=== PATIENT | male | born 1985 | race Caucasian/White ===

== ENCOUNTER 2017-08-23 17:18 | Emergency (ER) | payer OTHER ==
[2017-08-23 17:40] VITALS: TEMP 98
[2017-08-23] MEDS ORDERED: ONDANSETRON 4 MG ODT BU ONE (17:52)
[2017-08-23] MEDS ORDERED: ONDANSETRON 4 MG ODT ONE (17:56)
[2017-08-23 18:38] VITALS: BP 121/74; PULSE 86; RESP 18; O2SAT 99
== END 2017-08-23 18:33 | disposition home or self-care (01) | DRG 918 ==
LOC: ED 17:18
DX: T59.891A Toxic effect of other specified gases, fumes and vapors, accidental (unintentional), initial encounter (principal); R11.0 Nausea
CPT/HCPCS: 99282; 99283

== ENCOUNTER 2017-10-29 15:41 | Emergency (ER) | payer OTHER ==
[2017-10-29 15:41] VITALS: O2SAT 99
[2017-10-29 15:49] VITALS: BP 129/72; PULSE 99; RESP 20; TEMP 97.5
[2017-10-29] MEDS ORDERED: THIAMINE 100 MG/ML 100 MG/ML SOL IV ONE (16:17)
[2017-10-29] MEDS ORDERED: THIAMINE 100 MG/ML 100 MG/ML SOL ONE (16:26)
[2017-10-29] MEDS ORDERED: SODIUM CHLORIDE 0.9% 1000ML 1,000 ML IV SCH (16:30)
[2017-10-29 16:34] LABS: BASOPHILS % (AUTO) 2 % (0-3); EOSINOPHILS % (AUTO) 1 % (0-9); HEMATOCRIT 48 % (39-53); MEAN CORPUSCULAR HGB CONC 33.4 gm/dl (32.0-36.0); MEAN CORPUSCULAR VOLUME 89 fL (80-100); MONOCYTES % (AUTO) 4.4 % (0-12); NEUTROPHILS % (AUTO) 74.9 % (37-80)
[2017-10-29 16:55] LABS: APPEARANCE,URINE Clear; BILIRUBIN,URINE NEGATIVE (NEGATIVE); COLOR,URINE Light yellow; GLUCOSE, URINE (UA) NEGATIVE (NEGATIVE); KETONES,URINE NEGATIVE (NEGATIVE); LEUKOCYTE ESTERASE ,URINE NEGATIVE (NEGATIVE); NITRATE,URINE NEGATIVE (NEGATIVE); OCCULT BLOOD,URINE NEGATIVE (NEG-TRACE); UROBILINOGEN,URINE 0.2 (0.2-1.0 EU)
[2017-10-29 16:56] LABS: ALBUMIN 4.4 gm/dl (3.4-5.0); CALCIUM 8.5 mg/dl (8.5-10.1)
[2017-10-29 17:10] LABS: AMPHETAMINES NEGATIVE (NEGATIVE); METHADONE NEGATIVE (NEGATIVE); OPIATES(OP13) NEGATIVE (NEGATIVE); PROPOXYPHENE(PPX) NEGATIVE (NEGATIVE); RBC,URINE 0-2 (0-3AV/HPF); TRICYCLIC ANTIDEPRESSANTS NEGATIVE (NEGATIVE); WBC,URINE 0-2 (0-5AV/HPF)
[2017-10-29 17:11] LABS: OXYCODONE(OXY) NEGATIVE (NEGATIVE)
== END 2017-10-29 17:00 | DRG 897 ==
LOC: ED 15:41
DX: F10.129 Alcohol abuse with intoxication, unspecified (principal); Y90.8 Blood alcohol level of 240 mg/100 ml or more
CPT/HCPCS: 80053; 80305; 80307; 81001; 82150; 85025; 99283